=== PATIENT | female | born 1950 | race Caucasian/White ===

== ENCOUNTER 2022-04-04 14:37 | Observation (INO) | payer MEDICARE, SELFPAY ==
--- NOTE | 2022-04-01 12:50 | PCM.HP.BLA ---
History and Physical Date of Admission: 04/11/22 HPI: The patient is a 72 year old female presenting for pre-operative visit. She is scheduled for TVH with BSO, and A&P repair with USLF and cystoscopy on 04/04/22 for complete prolapse. Procedure discussed along with risks, benefits and complications. Other alternatives discussed for management. Consent form signed? Yes. ? ? PAST MEDICAL HISTORY PAST MEDICAL HISTORY Diagnosis Date ? Allergic rhinitis ? ? Depression ? ? Diffuse cystic mastopathy ? ? Diverticulosis ? ? Hyperlipidemia ? ? Insomnia ? ? RLS (restless legs syndrome) ? ? Shingles 2018 ? Splenic artery aneurysm (HCC) ? ? stable 5 years in 2017 ? Uterovaginal prolapse ? ? [facility] ? Vitamin D insufficiency ? ? ? PAST SURGICAL HISTORY PAST SURGICAL HISTORY Procedure Laterality Date ? CATARACT EXTRACTION HX Left 08/2017 ? COLONOSCOPY FLX DX W/COLLJ SPEC WHEN PFRMD ? 12/14/2010 ? Diverticulosis/hemorrhoids ? COLONOSCOPY SCRN NOT HIGH RISK ? 01/16/2021 ? EYE SURGERY HX ? ? ? REMOVE CATARACT, INSERT LENS,EX Right 07/10/2017 ? ? ? CURRENT MEDICATIONS Current Outpatient Medications Medication Sig Dispense Refill ? multivit with minerals/lutein (MULTIVITAMIN 50 PLUS ORAL) Take by mouth. ? ? ? buPROPion (WELLBUTRIN) 75 mg tablet Take 1 tablet by mouth twice daily. 60 tablet 2 ? naproxen (NAPROSYN) 500 mg tablet Take 1 tablet by mouth twice daily as needed for pain. Take with food. 60 tablet 0 ? traZODone (DESYREL) 100 mg tablet Take 1 tablet by mouth daily at bedtime. 90 tablet 0 ? pravastatin (PRAVACHOL) 40 mg tablet Take 1 tablet by mouth daily at bedtime. 90 tablet 1 ? conjugated estrogens (PREMARIN) vaginal cream small amount of cream vaginally qhs twice weekly and on pessary with cleanings 30 g 0 ? fluticasone (FLONASE) 50 mcg/actuation nasal spray Use 2 Sprays in each nostril once daily. Rinse mouth after use. 1 Bottle 2 ? cholecalciferol (VITAMIN D3) 2,000 unit tablet Take 1 tablet by mouth once daily. 90 tablet 3 ? loratadine 10 mg cap Take by mouth as directed. ? ? ? COMPOUNDED PRESCRIPTION once daily. Vital Reds ? ? ? No current facility-administered medications for this visit. ? ? ALLERGIES: Patient has no known allergies. ? PERSONAL HISTORY: SOCIAL HISTORY Social History ? Tobacco Use ? Smoking status: Never Smoker ? Smokeless tobacco: Never Used Vaping Use ? Vaping Use: Never used Substance Use Topics ? Alcohol use: Yes ? ? Alcohol/week: 2.5 standard drinks ? ? Types: 1 Cans of Beer (12oz) per week ? ? Comment: occasional ? Drug use: No ? FAMILY HISTORY: FAMILY HISTORY FAMILY HISTORY Problem Relation Age of Onset ? other (lymphoma) Mother ? ? Heart Maternal Grandmother ? ? Heart Maternal Grandfather ? ? Heart Paternal Grandmother ? ? Heart Paternal Grandfather ? ? No Known Problems Daughter ? ? No Known Problems Daughter ? ? No Known Problems Son ? ? ? REVIEW OF SYMPTOMS: GENERAL: denies fevers or chills ENDOCRINOLOGY: has not been on steroids Cardiology : denies palpitations or chest pain Respiratory: denies SOB or cough Hematology: denies history of prolonged bleeding or easy bruising or VTE Allergy: Denies history of personal or family history of allergy to anesthesia ? PHYSICAL EXAMINATION: ? VITALS: Blood pressure 118/72, pulse 64, resp. rate 20, height 5' 2.6 (1.59 m), weight 144 lb 3.2 oz (65.4 kg). ? GENERAL: The patient is well nourished, well hydrated in no acute distress. , The patient is oriented to time, place, and person. NECK: Supple. No lynphadenopathy, normal thyroid, no thyromegaly. LUNGS: Clear to auscultation bilaterally. no wheezes, rhonchi or rales HEART: Regular rate and rhythm, Normal heart sounds and No murmurs or gallops ? IMPRESSION: complete uterovaginal prolapse, symptomatic ? PLAN: The risks/benefits/alternatives and personal involved for the planned TVH, possible BSO, USLF, A&P repair and cystoscopy were reviewed with the patient. Her questions were answered to her satisfaction and she desires to proceed. Consent was signed. I reviewed with her postop instructions and expectations. ? ? I have reviewed and updated past medical and surgical history, medications and allergies This H&P was completed in my office on 03/25/22. Assessment & Plan Assessment/Plan (1) Complete uterovaginal prolapse:
--- NOTE | 2022-04-02 13:07 | EKG12_ITS ---
Test Reason : PRE-OP Blood Pressure : / mmHG Vent. Rate : 078 BPM Atrial Rate : 078 BPM P-R Int : 138 ms QRS Dur : 070 ms QT Int : 364 ms P-R-T Axes : 061 042 054 degrees QTc Int : 414 ms Normal sinus rhythm Low voltage QRS Nonspecific T wave abnormality Confirmed by HITESH FIERRO, MAURICIO ([id number]), features editor DIEGO SANTAMARIA ([id number]) on 04/03/2022 11:15:34 AM Referred By: Stephanie Spears Confirmed By:MAURICIO PROCTOR MD
[2022-04-04] VITALS (31 sets, daily range): BP systolic 83–115; BP diastolic 44–73; PULSE 60–89; RESP 10–18; TEMP 36.2–37.4; O2SAT 97–100; BMI 26.4
--- NOTE | 2022-04-04 | HYST_PTH ---
PATIENT: MERCY HERRERA LOC: [facility] U#:[id number] AGE/SX: 72/F ROOM: UT314 RE04/04/[address]: Dr. Stephanie Spears MD : [id number] BED: 1 DIS: 04/05/2022 SPEC #: [id number] RECD: 04/04/22 11:18 STATUS: DULCE FIERRO #: [id number] ANA: 04/04/22 00:[address]: Stephanie Spears DEPT: SURGICAL PATHOLOGY RECD BY: Brian Lewis ENTERED: 04/04/22 11:18 SP TYPE: HYSTERECT OTHR DR: MD Dr. Ramesh Dykes MD Tissues: Uterus, NOS Procedures: Surgery Specimen Level V HEADER OPERATION: ERAS, total vaginal hysterectomy, posterior repair, uterosacral PRE-OP DIAGNOSIS: Complete uterovaginal prolapse TISSUE SUBMITTED: Uterus, cervix, vaginal mucosa MICROSCOPIC DIAGNOSIS Uterus, cervix and vaginal mucosa, total vaginal hysterectomy and posterior repair: Cervix ? chronic cystic cervicitis. Endometrium ? weakly proliferative endometrium. Myometrium ? intramural leiomyomas with focal calcification (largest measuring 1.5 cm in greatest dimension). Focal adenomyosis. Vaginal mucosal tissue ? pieces of squamous mucosa with focal mild chronic inflammation. SJ:anna 04/05/2022 MICROSCOPIC DESCRIPTION Slides are reviewed. GROSS DESCRIPTION Received in fixative is one container labeled with the patient's name and designated uterus, cervix and vaginal mucosa. The specimen consists of a hysterectomy specimen consisting of uterus with cervix and detached pieces of mucosal tissue. The uterus with cervix weighs 40 gm and measures 6 x 4 x 2.5 cm. The serosal surface is wolf, glistening. The ectocervical mucosa is unremarkable. The external os is circular in contour. The endocervical canal measures 2.5 cm in length and the endocervical mucosa is wolf, glistening and unremarkable. The triangular endometrial cavity measures 2.5 cm in length and 1 cm in width. The endometrium is wolf, glistening without any mass lesion and measures 0.1 cm in thickness. Sections of the uterine wall reveal multiple intramural nodular masses. The largest mass measures 1.5 cm in greatest dimension. Sections of these masses reveal wolf whorled cut surfaces without areas of hemorrhage, necrosis or cystic degeneration. The uterine wall measures up to 2 cm in thickness. Also present in the container are two detached pieces of mucosal tissue measuring in aggregate 3 x 2 x 0.3 cm. No mucosal lesion is identified. Instrumentation arroyo are noted. Script Worker sections are submitted in eight cassettes as follows: 1 - anterior cervix, 2 - posterior cervix, 3 & 4 - anterior uterine wall, 5 & 6 - posterior uterine wall, nodular masses, 7 - more nodular masses, 8 - mucosal tissue. / JAIME:anna 04/04/2022 TC:1 CPT: 65080
[2022-04-04] MEDS: Gabapentin 600 MG Tablet PO (07:00)
[2022-04-04] MEDS: Lactated Ringers 1,000 ML 40 ML IV (07:00)
[2022-04-04] MEDS: Acetaminophen 500 MG Tablet 1000 MG PO ×4 (07:00→23:29)
[2022-04-04] MEDS: Celecoxib 200 MG Capsule PO (07:00)
[2022-04-04] MEDS: Scopolamine 1mg/72hr Patch 1 PATCH TD (07:00)
[2022-04-04] MEDS: Phenazopyridine 95 MG Tablet 190 MG PO (07:00)
[2022-04-04] MEDS: Enoxaparin 40 MG/0.4 ML Syringe SC (07:00)
[2022-04-04] MEDS: Lidocaine 1%/Epi 1:200 (30ml) 30 ML AMPUL (08:09)
[2022-04-04 08:11] LABS: Bedside Glucose 147 mg/dL (74-106)
[2022-04-04] MEDS: Cefazolin 2 GM in 0.9% Normal Saline 100 ML IV (08:42)
[2022-04-04] MEDS: Lactated Ringers @ 40 MLS/HR 40 ML IV (10:00)
--- NOTE | 2022-04-04 10:40 | OP.PCM_ITS ---
Problems Associated Problem List Diagnoses (1) Complete uterovaginal prolapse: Report of Operation Date of Procedure: 04/04/22 Pre-Operative Diagnosis: complete uterovaginal prolapse Post-Operative Diagnosis: same Surgery/Procedure Performed:: TVH, Uterosacral ligament fixation, Posterior repair Description of Surgical Findings:: normal cervix adn vagina, normal small atrophic ovaries Surgeon: Stephanie Spears lehr attendant: Denisse Field lehr attendant: Shari Type of Anesthesia: General Anesthesiologist: [place] Nj Special Medications: none Specimen's removed: uterus,cervix, vaginal epithelium Drains: pathak Estimated Blood Loss (mL): 30 Fluids Replaced: 1100 Description of Procedure: The patient was taken to the operating room where she was prepped and draped in the normal sterile fashion in the dorsal lithotomy position. A weighted speculum was placed in the vagina and the anterior lip of the cervix was grasped with a Venecia clamp. The vaginal epithelium was infiltrated circumferentially around the cervix with [1% Xylocaine solution with dilute epinephrine solution]. An incision was made [around the entire cervix] with a scalpel and the vaginal epithelium was dissected back with blunt and sharp dissection. The anterior colpotomy incision was made sharply. Entry into the anterior cul-de-sac was confirmed by visualization of the uterine fundus and bowel behind the uterus. [The posterior colpotomy was made with the Guerrero scissors. The posterior peritoneum was secured to the posterior vaginal cuff with an [id number] 0 Vicryl suture. The Rosibel retractor was placed in the posterior colpotomy incision.] The uterosacral ligaments were clamped with Tg clamps transected and suture ligated on both sides and excellent hemostasis of the pedicles was noted. The cardinal ligaments were clamped, ligated and transected with the LigaSure device as were the remaining portion of the broad ligament. The utero-ovarian ligaments and tubes were clamped transected and suture ligated. The uterus was brought out through the colpotomy incision intact. Both ovaries were very high and difficult to visualize in reach. They were well against the pelvic sidewall. Decision was made that it would increase risk of bowel injury or bleeding significantly to try to retrieve them. The uterosacral ligament fixation was then performed. A single Prolene suture was placed under the vaginal epithelium anteriorly, through the lower portion of the uterosacral ligament and through the lower portion of the vaginal epithelium. Care was taken to make sure it did not penetrate all the way through the vagina to be but was left underneath the epithelium. Same procedures performed on the contralateral side. PDS sutures were then placed through the vaginal epithelium epithelium posteriorly, placed through the uterosacral ligament and through the anterior vaginal epithelium. 2 PDS sutures were placed on the right side of the vaginal cuff and 2 on the left. These were then secured down. The vaginal epithelium was closed with an 0 Vicryl suture over the Prolene suture. A single wxowfo-[id number] Vicryl suture was needed in the midline. Hemostasis was noted the vaginal cuff. The anterior vaginal epithelium was only approximately 4 cm from the urethra to the cuff and was well supported so decision was made not to do an anterior pair as it would significantly shorten and limit the caliber of the vagina. The posterior pair was then performed. The vaginal epithelium over the perineal body and in the midline and the posterior vaginal wall was infiltrated with the same local anesthetic. An incision was made across the perineal body at the the vaginal introitus from 4-7 o'clock. Some vaginal epithelium was dissected off the perineal body and the scissors were used to undermine and transect the vaginal epithelium in the midline. Allis clamps and T clamps were used to hold the vaginal epithelium and underlying tissue was dissected off with blunt and sharp dissection. A finger was placed in the rectum as I placed the rectocele sutures. 0 Vicryl pop-off sutures were used to reapproximate vaginal tissue over the rectocele and the rectocele was tucked. These were tied down. On digital exam, the were no sutures penetrating the rectum. The vaginal epithelium was then reapproximated with 2-0 Vicryl suture in a running standard fashion. A perineal body support stitch was placed with a 0 Vicryl suture and the skin was sewn closed with the 2-0 Vicryl suture. Excellent hemostasis was noted. The vaginal cuff was hemostatic and excellent support was noted. The Pathak was left to straight drain. The vaginal sweep was completed by me. All sponge lap and needle counts were correct. Patient was awakened and taken to theher recovery room in stable condition. Grafts/Implants Used: none Procedure Start Time: 08:58 Procedure Stop Time: 10:26 Complications none Admit VTE Documentation VTE Present on Admission: No VTE Mechan Device Prophylaxis: SCD's VTE Pharm Prophylaxis ordered?: Yes
[2022-04-04] MEDS: Naproxen 250 MG Tablet PO (15:41)
[2022-04-04] MEDS: Lactated Ringers 500 ML 999 ML IV (16:30)
--- NOTE | 2022-04-04 16:30 | NURSING ---
Lab called at this time for STAT draw
[2022-04-04 17:11] LABS: Absolute Neutrophil Count 10.8 X10^3/uL (2.0-7.7); Basophil# 0.02 X10^3/uL; Basophil% 0.2 % (0-1); Eosinophil# 0.01 X10^3/uL; Eosinophils% 0.1 % (0-5); Hematocrit 30.2 % (37-47); Hemoglobin 9.6 g/dL (12.0-15.0); Lymphocyte % 5.1 % (19-41); Mean Corp Hgb Conc 31.8 g/dL (32-36); Mean Corpuscular Hgb 29.1 pg (27.0-32.0); Mean Corpuscular Volume 91.5 fL (81-99); Mean Platelet Vol. 10.2 fl (6.2-12.0); Monocyte% 2.5 % (0-10); NRBC Flagged by Analyzer 0 % (0-5); Neutrophil # 10.78 X10^3/uL (2.7-7.7); Neutrophil % 91.5 % (47-70); POSITIVE DIFFERENTIAL YES; Platelet Count 211 K/mm3 (150-450); RBC Distribution Width CV 12.7 % (11.6-14.6); RBC Distribution Width SD 42.2 fl (35.1-43.9); White Blood Count 11.8 K/mm3 (4.4-11.0)
[2022-04-04 17:14] LABS: Differential Indicated SCAN CRITERIA MET
--- NOTE | 2022-04-04 17:36 | PCM.PN.BLA ---
Progress Note Called for bleeding. At bedside to examine pt. She is having some lower pelvic cramping. No lightheadedness, dizziness. She feels well other than cramping but has not had anything for pain yet. Physical Exam Const alert and no apparent distress General Appearance: comfortable HEENT normocephalic Resp normal respiratory effort GI soft to palpation and non-distended GI Narrative: Minimally tender, no rebounding, no guarding, no rigidity Extremity normal to inspection Assessment & Plan Assessment/Plan (1) S/P vaginal hysterectomy: PLAN: At bedside to examine pt. About 400-500 cc of blood clot noted, and the clot was mainly sitting along the posterior repair suture line. Once the clot was cleared away, a speculum exam was performed and the vaginal cuff was intact and normal appearing, without bleeding from the vaginal cuff suture line. Given this, vaginal packing was placed. Abdomen is soft and non distended. BP normal while in the room and pt is not tachycardia. Hgb ~9 from ~11 pre op. Will check serial BP's and repeat CBC 4 hours from last. Will keep vaginal packing and pathak in over night. Discussed with Dr. Spears. (2) Vaginal bleeding:
[2022-04-04 18:14] LABS: Ovalocyte 1+
[2022-04-04] MEDS: traZODone 100 MG Tablet PO (21:09)
[2022-04-04] MEDS: Lactated Ringers 1,000 ML 150 ML IV (21:09)
[2022-04-04] MEDS: buPROPion 75 MG Tablet PO (21:09)
[2022-04-04] MEDS: Pravastatin 40 MG Tablet PO (21:09)
[2022-04-04] MEDS: Docusate Sodium 100 MG Capsule PO (21:09)
[2022-04-04] MEDS: Magnesium Chloride 64 MG Delay Rel.Tablet 128 MG PO (21:12)
[2022-04-04 21:45] LABS: Hematocrit 27.8 % (37-47); Hemoglobin 8.7 g/dL (12.0-15.0); Mean Corp Hgb Conc 31.3 g/dL (32-36); Mean Corpuscular Hgb 28.7 pg (27.0-32.0); Mean Corpuscular Volume 91.7 fL (81-99); Mean Platelet Vol. 10.8 fl (6.2-12.0); Platelet Count 217 K/mm3 (150-450); RBC Distribution Width CV 12.8 % (11.6-14.6); RBC Distribution Width SD 42.5 fl (35.1-43.9); Red Blood Count 3.03 M/mm3 (4.2-5.4); White Blood Count 11.5 K/mm3 (4.4-11.0)
[2022-04-04] MEDS: Lactated Ringers 1,000 ML 50 ML IV (22:03)
[2022-04-05] VITALS (10 sets, daily range): BP systolic 94–114; BP diastolic 49–60; PULSE 75–94; RESP 16; TEMP 36.9–37.3; O2SAT 95–99
[2022-04-05 05:19] LABS: Hematocrit 31.5 % (37-47); Mean Corp Hgb Conc 31.7 g/dL (32-36); Mean Corpuscular Hgb 28.7 pg (27.0-32.0); Mean Corpuscular Volume 90.5 fL (81-99); Mean Platelet Vol. 10.7 fl (6.2-12.0); Platelet Count 204 K/mm3 (150-450); RBC Distribution Width CV 13.5 % (11.6-14.6); RBC Distribution Width SD 44.6 fl (35.1-43.9); Red Blood Count 3.48 M/mm3 (4.2-5.4); White Blood Count 9.2 K/mm3 (4.4-11.0)
[2022-04-05] MEDS: Naproxen 250 MG Tablet PO (05:41)
[2022-04-05] MEDS: Acetaminophen 500 MG Tablet 1000 MG PO ×2 (07:01→14:13)
--- NOTE | 2022-04-05 08:21 | PCM.PN.OB ---
Subjective Subjective C/o pain but hasn't received morphine b/c of low BP. Denies CP/SOB. Not hungry but no nausea. No flatus. No vaginal bleeding since packing in. Feels bloated. Objective Data Objective Data awake, alert, NAD abd- moderatly distneded, no rebound, some guarding, medium firmness, not taught ext- no edema peripad- no blood Vital Signs: Vital Signs Temp Pulse Resp BP Pulse Ox 98.9 F 85 16 109/55 L 96 04/05/22 07:59 04/05/22 07:59 04/05/22 07:59 04/05/22 07:59 04/05/22 07:59 Oxygen Flow Rate (L/min) 2 Oxygen Delivery Method Room Air Weight: 65.5 kg Body Mass Index (BMI) 26.4 Intake & Output: Intake and Output for Last 24 Hours 04/03/22 04/04/22 04/05/22 23:59 23:59 23:59 Intake Total 2422.0 / 2422.0 400 / 400 Output Total 1450 / 1450 250 / 250 Balance 972.0 / 972.0 150 / 150 Lab / Micro Data Result Diagrams: 04/05/22 04:22 Labs: Laboratory Results - last 24 hr 04/02/22 13:30: Blood Type Cancelled, A1 Antigen Typing Cancelled, Rho(D) Type Cancelled, Antibody Screen Cancelled, Crossmatch See Detail 04/04/22 16:58: WBC 11.8 H, RBC 3.30 L, Hgb 9.6 L, Hct 30.2 L, MCV 91.5, MCH 29.1, MCHC 31.8 L, RDW Std Deviation 42.2, RDW Coeff of Joe 12.7, Plt Count 211, MPV 10.2, Immature Gran % (Auto) 0.600, Neut % (Auto) 91.5 H, Lymph % (Auto) 5.1 L, [place] % (Auto) 2.5, Eos % (Auto) 0.1, Baso % (Auto) 0.2, Absolute Neuts (auto) 10.8 H, Absolute Lymphs (auto) 0.60 L, Nucleated RBC % 0, Diff Path Review N/A, Ovalocytes 1+ 04/04/22 21:20: WBC 11.5 H, RBC 3.03 L, Hgb 8.7 L, Hct 27.8 L, MCV 91.7, MCH 28.7, MCHC 31.3 L, RDW Std Deviation 42.5, RDW Coeff of Joe 12.8, Plt Count 217, MPV 10.8 04/05/22 04:22: WBC 9.2, RBC 3.48 L, Hgb 10.0 L, Hct 31.5 L, MCV 90.5, MCH 28.7, MCHC 31.7 L, RDW Std Deviation 44.6 H, RDW Coeff of Joe 13.5, Plt Count 204, MPV 10.7 Assessment & Plan (1) S/P vaginal hysterectomy: PLAN: POD#1 hgb trended down c/w postop hemorrhage. Slowed since vaginal packing in but suspicious for intraperitoneal bleed as well. HGB stable after one unit. Will leave packing, recheck CBC at noon. IF stable remove packing and ambulate and see if she can void. Monitor vitals and urine output. Add oxycodon to control pain. Pain not well controlled this am as was not getting morphine due to hypotension. (2) Vaginal bleeding: (3) Complete uterovaginal prolapse:
[2022-04-05] MEDS: Docusate Sodium 100 MG Capsule PO (09:41)
[2022-04-05] MEDS: oxyCODONE 5 MG Tablet PO ×2 (09:41→17:40)
[2022-04-05] MEDS: buPROPion 75 MG Tablet PO (09:41)
[2022-04-05 12:33] LABS: Hematocrit 29.9 % (37-47); Hemoglobin 9.6 g/dL (12.0-15.0); Mean Corp Hgb Conc 32.1 g/dL (32-36); Mean Corpuscular Hgb 29.3 pg (27.0-32.0); Mean Corpuscular Volume 91.2 fL (81-99); Mean Platelet Vol. 10.9 fl (6.2-12.0); Platelet Count 188 K/mm3 (150-450); RBC Distribution Width CV 13.2 % (11.6-14.6); RBC Distribution Width SD 43.9 fl (35.1-43.9); Red Blood Count 3.28 M/mm3 (4.2-5.4); White Blood Count 8.3 K/mm3 (4.4-11.0)
--- NOTE | 2022-04-05 13:59 | PCM.PROGNOTE ---
Subjective Subjective Patient feels well Objective Data Objective Data Vital Signs: Vital Signs Temp Pulse Resp BP Pulse Ox 99.2 F H 85 16 99/51 L 97 04/05/22 11:29 04/05/22 11:29 04/05/22 11:29 04/05/22 11:29 04/05/22 11:29 Oxygen Flow Rate (L/min) 2 Oxygen Delivery Method Room Air Weight: 144 lb 6.444 oz Body Mass Index (BMI) 26.4 Intake & Output: Intake and Output for Last 24 Hours 04/03/22 04/04/22 04/05/22 23:59 23:59 23:59 Intake Total 2422.0 / 2422.0 850 / 850 Output Total 1450 / 1450 1350 / 1350 Balance 972.0 / 972.0 -500 / -500 Lab / Micro Data Result Diagrams: 04/05/22 11:25 Labs: Laboratory Results - last 24 hr 04/02/22 13:30: Blood Type Cancelled, A1 Antigen Typing Cancelled, Rho(D) Type Cancelled, Antibody Screen Cancelled, Crossmatch See Detail 04/04/22 16:58: WBC 11.8 H, RBC 3.30 L, Hgb 9.6 L, Hct 30.2 L, MCV 91.5, MCH 29.1, MCHC 31.8 L, RDW Std Deviation 42.2, RDW Coeff of Joe 12.7, Plt Count 211, MPV 10.2, Immature Gran % (Auto) 0.600, Neut % (Auto) 91.5 H, Lymph % (Auto) 5.1 L, [place] % (Auto) 2.5, Eos % (Auto) 0.1, Baso % (Auto) 0.2, Absolute Neuts (auto) 10.8 H, Absolute Lymphs (auto) 0.60 L, Nucleated RBC % 0, Diff Path Review N/A, Ovalocytes 1+ 04/04/22 21:20: WBC 11.5 H, RBC 3.03 L, Hgb 8.7 L, Hct 27.8 L, MCV 91.7, MCH 28.7, MCHC 31.3 L, RDW Std Deviation 42.5, RDW Coeff of Joe 12.8, Plt Count 217, MPV 10.8 04/05/22 04:22: WBC 9.2, RBC 3.48 L, Hgb 10.0 L, Hct 31.5 L, MCV 90.5, MCH 28.7, MCHC 31.7 L, RDW Std Deviation 44.6 H, RDW Coeff of Joe 13.5, Plt Count 204, MPV 10.7 04/05/22 11:25: WBC 8.3, RBC 3.28 L, Hgb 9.6 L, Hct 29.9 L, MCV 91.2, MCH 29.3, MCHC 32.1, RDW Std Deviation 43.9, RDW Coeff of Joe 13.2, Plt Count 188, MPV 10.9 Physical Exam Narrative External genitalia normal Vaginal packing removed Const alert and oriented x3 Assessment & Plan Assessment/Plan (1) S/P vaginal hysterectomy: PLAN: POD#1 Vaginal packing removed & no active bleeding noted Heme - Hb stable on repeat CBC - pathak to be removed by RN & will check PVR Plan for d/c home later today if patient continues doing well
--- NOTE | 2022-04-05 14:03 | PCM.DC ---
Discharge Instructions Diet Discharge Diet: No restrictions Activity Discharge Activity: May Shower May resume sexual activity in: 6 weeks (and when OK per MD) Weight Bearing Status: Weight bearing as tolerated Dressing / Incision Call your doctor if you observe: Fever of 101 or Higher, Change in Color, Inability to urinate, Using more than 1 pad per hour, Shortness of breath, Dizziness, Fainting spells, Chest pain, Increased palpitations (irregular heartbeat) and Uncontrolled pain Follow Up Care Please Follow Up With: Stephanie Spears MD When: As scheduled Test Results: Test results from this visit will be discussed in further detail at your follow-up appointment, if applicable. Discharge Plan Admission Admit Date/Time: 04/04/22 14:37 Primary Reason for Your Visit: Vaginal hysterectomy Attending Provider: Stephanie Spears Primary Care Provider: Ramesh Hermosillo Consulting Providers: August Davison Discharge Orders/Prescriptions Prescriptions: No Action acetaminophen [Tylenol] 325 mg Tablet 650 mg PO Q6H PRN (Reason: Pain) RF: 0 pravastatin 40 mg Tablet 40 mg PO QHS RF: 0 ibuprofen 200 mg Capsule 200 mg PO Q6H PRN (Reason: Pain) RF: 0 trazodone 100 mg Tablet 100 mg PO QHS RF: 0 bupropion HCl 75 mg Tablet 75 mg PO BID RF: 0 docusate sodium [Stool Softener] 100 mg Capsule 200 mg PO QHS RF: 0 multivitamin Capsule 1 cap PO DAILY RF: 0 naproxen 500 mg Tablet 500 mg PO BID RF: 0 cyclosporine [Restasis] 0.05 % Dropperette 1 drp EACH EYE Q12H RF: 0 Restful Legs 2 tab PO/SL QHS RF: 0 Referrals / Follow Up: Ramesh Hermosillo MD [Primary Care Provider] - Disposition Disposition (needs filled in before D/C Order can be placed): Home, Self Care
== END 2022-04-05 20:55 | disposition home or self-care (01) ==
LOC: MS3 17:56 → SDC 04-05 07:21
PROVIDERS: Anesthesiology; Obstetrics & Gynecology; Admitting Provider Obstetrics & Gynecology; PCP Family Medicine; Referring Provider Obstetrics & Gynecology; Visit Provider Obstetrics & Gynecology
PROC: (CPT 58260; principal; 2022-04-04 08:15)
DX: N81.3 Complete uterovaginal prolapse (principal); D25.1 Intramural leiomyoma of uterus; E78.5 Hyperlipidemia, unspecified; F32.A Depression, unspecified; G25.81 Restless legs syndrome; E55.9 Vitamin D deficiency, unspecified; Z79.899 Other long term (current) drug therapy; Z87.19 Personal history of other diseases of the digestive system; N72 Inflammatory disease of cervix uteri; R94.31 Abnormal electrocardiogram [ECG] [EKG]; F41.9 Anxiety disorder, unspecified
CPT/HCPCS: 58262; 00944; 57250; 36415; 36430; 82962; 83735; 85025; 85027; 86850; 86900; 86901; 86920; 86922; 88307; 93005; 94762; 96360; 96361; 99218; J7120; P9016; G0378; J2405; J3475